=== PATIENT | female | born 1990 | race Caucasian/White ===

== ENCOUNTER 2024-09-23 21:10 | Emergency (ER) | payer SELFPAY ==
[~2024-09-23] VITALS: Ht 152.4 cm; Wt 77.2 kg
[2024-09-23 21:12] VITALS: TEMP 36.9; O2SAT 99
[2024-09-23 21:40] LABS: CLARITY URINE CLOUDY (CLEAR); COLOR URINE YELLOW (YELLOW); GLUCOSE URINE NEGATIVE (NEGATIVE); KETONES URINE NEGATIVE (NEGATIVE); LEUKOCYTE ESTERASE URINE 3+ (NEGATIVE); NITRITE URINE POSITIVE (NEGATIVE); OCCULT BLOOD URINE 3+ (NEGATIVE); PROTEIN URINE 3+ (NEGATIVE); SPECIFIC GRAVITY URINE 1.017 (1.005-1.030); UROBILINOGEN URINE 0.2 E.U./dL (0.2-1.0)
[2024-09-23 21:53] LABS: BACTERIA URINE 1+; SQUAMOUS EPITHELIAL CELL URINE 1+ /lpf (RARE/1+); WBC URINE 15-25 /hpf (0-2)
[2024-09-23] MEDS ORDERED: IBUP-2028 MT (22:53)
[2024-09-23] MEDS ORDERED: CEPH500C2 MT (22:53)
[2024-09-23 23:08] VITALS: BP 164/103; PULSE 90; RESP 18; O2SAT 99
[2024-09-23] MEDS: IBUPROFEN 400MG TABLET PO ONE (23:08)
== END 2024-09-23 23:10 | disposition home or self-care (01) ==
LOC: ER 21:10
DX: N39.0 Urinary tract infection, site not specified (principal); R30.0 Dysuria; Z79.899 Other long term (current) drug therapy
CPT/HCPCS: 81003; 81025; 99283